=== PATIENT | female | born 1995 | race Caucasian/White ===

== ENCOUNTER 2017-02-15 20:49 | Emergency (ER) | payer OTHER ==
[2017-02-15 20:49] VITALS: BMI 41.5
[2017-02-15 21:06] VITALS: BP 100/83; PULSE 84; RESP 18; TEMP 98.2; O2SAT 100
--- NOTE | 2017-02-15 21:49 | C.PDOC ---
History Of Present Illness 21 yo female come in for evaluation of Right foot pain over medial aspect developed for past 2 days after sustained twisting injury. Pt reports, pain is localized, worse with weight bearing. Otherwise, pt denies obvious deformity, weakness, sensory or vascular deficits to Right foot. Ambulate to Ed for evaluation. Time Seen by Provider: 02/15/17 21:05 Chief Complaint (Nursing): Lower Extremity Problem/Injury History Per: Patient Onset/Duration Of Symptoms: Gradual Current Symptoms Are (Timing): Still Present Past Medical History Reviewed: Historical Data, Nursing Documentation, Vital Signs Vital Signs: Last Vital Signs Temp 98.2 F 02/15/17 21:02 Pulse 84 02/15/17 21:02 Resp 18 02/15/17 21:02 BP 100/83 02/15/17 21:02 Pulse Ox 100 02/15/17 21:02 - Medical History PMH: No Chronic Diseases Surgical History: No Surg Hx - [facility] Procedures EXTRACTION OF POC, LOW CERVICAL, OPEN APPROACH (07/06/16) LOW CERVICAL (06/11/14) Family History: States: No Known Family Hx - Social History Hx Alcohol Use: No Hx Substance Use: No - Immunization History Hx Tetanus Toxoid Vaccination: No Hx Influenza Vaccination: No Hx Pneumococcal Vaccination: No Review Of Systems Except As Marked, All Systems Reviewed And Found Negative. Musculoskeletal: Positive for: Foot Pain Skin: Negative for: Bruising Neurological: Negative for: Weakness, Numbness Physical Exam - Physical Exam Appears: Well, Non-toxic, No Acute Distress Skin: Normal Color, Warm, No Ecchymosis Head: Atraumatic Extremity: Normal ROM (Right foot), Tenderness (over medial aspect of Right foot , No palpable deformity, no neurovascular deficits.), Capillary Refill (less than 2sec ), No Deformity, No Swelling Neurological/Psych: Oriented x3, Normal Speech, Normal Motor, Normal Sensation, Normal Reflexes ED Course And Treatment O2 Sat by Pulse Oximetry: 100 - Other Rad Right foot X-Ray: Interpreted by Me, Viewed By Me Interpretation: On re-evaluation, pt is afebrile, hemodynamicaly stable. Ambulatory in ED. Right foot: exam c/w foot sprain. FAROM, no neurovascular deficits. XR review- normal study. Zach wrap applied to Right foot. Pt has clinical findings c/w foot sprain. Pt advised. ref. to F/u with Bottling Attendant in 2-3 days for re-eavl. return if any new changes. Disposition Counseled Patient/Family Regarding: Studies Performed, Diagnosis, Need For Followup - Disposition Referrals: Podiatry Clinic [Outside] Disposition: HOME/ ROUTINE Disposition Time: 21:45 Condition: STABLE Additional Instructions: RICE-rest, ice, compression, elevation Ibuprofen as need for pain Follow up with Bottling Attendant in 2-3 days for re-evaluation. Return to ED if any worsening or new changes. Instructions: Foot Sprain (ED) - Clinical Impression Clinical Impression: Foot sprain
--- NOTE | 2017-02-16 09:51 | RAD ---
PROCEDURE: Right Foot Radiographs. HISTORY: injury COMPARISON: None. FINDINGS: BONES: Normal. No fracture. JOINTS: Normal. SOFT TISSUES: Normal. OTHER FINDINGS: None. IMPRESSION: Normal right foot radiographs.
== END 2017-02-15 21:55 | disposition home or self-care (01) ==
LOC: C.ER 20:49
DX: S93.601A Unspecified sprain of right foot, initial encounter (principal); X50.9XXA Other and unspecified overexertion or strenuous movements or postures, initial encounter